=== PATIENT | male | born 1940 | race Caucasian/White ===

== ENCOUNTER → 2018-04-13 | Outpatient (CLI) | payer MEDICARE, OTHER ==
[2018-04-13 19:07] LABS: Source, Urine Catheter
[2018-04-13 19:23] LABS: Appearance, Urine Cloudy (Clear); Bilirubin, Urine Neg (Neg); Blood, Urine 3+ (Neg); Color, Urine Yellow (P-Yellow); Glucose Qualitative, Urine Neg (Neg); Ketones, Urine Neg (Neg); Leukocyte Esterase, Urine 3+ (Neg); Nitrite, Urine Pos (Neg); Protein, Urine 2+ (Neg); Specific Gravity, Urine 1.005 (1.003-1.022); Urobilinogen, Urine NORM (Normal)
[2018-04-13 19:39] LABS: Bacteria Mod /hpf; Squamous Epithelial Cells Not Seen /hpf (Few); White Blood Cells, Urine TNTC /hpf (0-5)
== END | disposition home or self-care (01) ==
LOC: LAB 16:30 → LAB SHORT 16:30
PROVIDERS: Nurse Practitioner Family
DX: N39.0 Urinary tract infection, site not specified (principal)
CPT/HCPCS: 81001; 87077; 87086; 87186

== ENCOUNTER → 2019-01-28 | Outpatient (CLI) | payer MEDICARE, OTHER ==
[2019-01-28 18:59] LABS: Source, Urine Catheter
[2019-01-28 19:15] LABS: Appearance, Urine Hazy (Clear); Bilirubin, Urine Neg (Neg); Blood, Urine 5+ (Neg); Color, Urine Yellow (P-Yellow); Glucose Qualitative, Urine Neg (Neg); Ketones, Urine Neg (Neg); Leukocyte Esterase, Urine 3+ (Neg); Nitrite, Urine Pos (Neg); Protein, Urine 2+ (Neg); Urobilinogen, Urine NORM (Normal)
[2019-01-28 19:32] LABS: White Blood Cells, Urine 25-50 /hpf (0-5)
[2019-01-28 19:33] LABS: Bacteria Many /hpf; Squamous Epithelial Cells Rare /hpf (Few)
== END | disposition home or self-care (01) ==
LOC: LAB SHORT 18:57 → LAB 18:57
PROVIDERS: Nurse Practitioner Family
DX: N39.0 Urinary tract infection, site not specified (principal)
CPT/HCPCS: 81001; 87077; 87086; 87186

== ENCOUNTER → 2019-02-17 | Outpatient (CLI) | payer MEDICARE, OTHER ==
[2019-02-17 19:07] LABS: Source, Urine Catheter
[2019-02-17 19:26] LABS: Bilirubin, Urine Neg (Neg); Blood, Urine 4+ (Neg); Glucose Qualitative, Urine Neg (Neg); Ketones, Urine Neg (Neg); Leukocyte Esterase, Urine 3+ (Neg); Nitrite, Urine Pos (Neg); Protein, Urine 2+ (Neg); Urobilinogen, Urine NORM (Normal)
[2019-02-17 19:44] LABS: Appearance, Urine Cloudy (Clear); Color, Urine Yellow (P-Yellow)
[2019-02-17 19:45] LABS: Squamous Epithelial Cells Not Seen /hpf (Few); Triple Phosphate Crystals Few /hpf
[2019-02-17 19:46] LABS: Bacteria Many /hpf; White Blood Cells, Urine 50-100 /hpf (0-5)
== END | disposition home or self-care (01) ==
LOC: LAB SHORT 19:06 → LAB 19:06
PROVIDERS: Nurse Practitioner Family
DX: N39.0 Urinary tract infection, site not specified (principal)
CPT/HCPCS: 81001; 87086

== ENCOUNTER 2020-11-18 14:41 | Emergency (ER) | payer MEDICARE, OTHER ==
[~2020-11-18] VITALS: Ht 182.9 cm; Wt 90.7 kg
[2020-11-18] MEDS ORDERED: Mirtazapine45 M1 PO (15:11)
[2020-11-18] MEDS ORDERED: THERA-D2000 UNIT PO (15:12)
[2020-11-18] MEDS ORDERED: TIZA4 PO (16:14)
[2020-11-18] MEDS ORDERED: ACET325 PO (16:15)
[2020-11-18] MEDS ORDERED: MIRALAX17 GM PO (16:15)
[2020-11-18] MEDS ORDERED: Mucus Relief400 MG PO (16:16)
[2020-11-18] MEDS ORDERED: QUET25 PO (16:16)
[2020-11-18] MEDS ORDERED: SULFAMETHOXAZO1 EACH PO (16:16)
[2020-11-18] MEDS ORDERED: MORP20L PO (16:31)
[2020-11-18] MEDS ORDERED: LORAZEPAM2 MG/1 M1 PO (16:31)
[2020-11-18] MEDS ORDERED: ANASPAZ0.125 MG PO (16:31)
== END 2020-11-18 19:00 | disposition home or self-care (01) ==
LOC: ER 14:41
DX: J69.0 Pneumonitis due to inhalation of food and vomit (principal); I10 Essential (primary) hypertension; J44.9 Chronic obstructive pulmonary disease, unspecified; Z51.5 Encounter for palliative care; Z88.2 Allergy status to sulfonamides; Z79.899 Other long term (current) drug therapy; Z20.822 Contact with and (suspected) exposure to COVID-19
CPT/HCPCS: 99284; A9270